=== PATIENT | male | born 1940 | race Caucasian/White ===

== ENCOUNTER → 2016-11-23 | Outpatient (CLI) | payer MEDICARE, OTHER ==
[~2016-11-23] MED LIST: [UNRECOGNIZED DRUG - OTHER]
--- NOTE | 2016-11-23 10:53 | RAD ---
Right lower extremity venous ultrasound, 11/23/2016 : History: Right leg edema Duplex evaluation including grayscale, color flow and spectral Doppler analysis was performed. The femoral and popliteal veins show no filling defects to suggest DVT. The visualized deep veins in the right calf are unremarkable. IMPRESSION: There is no sonographic evidence of deep vein thrombosis in the right lower extremity
== END | disposition home or self-care (01) ==
LOC: US 09:08
PROVIDERS: ATTEND Physician Assistant
DX: R60.0 Localized edema (principal)
CPT/HCPCS: 93971

== ENCOUNTER → 2017-08-27 | Outpatient (CLI) | payer MEDICARE, OTHER ==
--- NOTE | 2017-08-27 14:25 | RAD ---
CT head without intravenous contrast History: Single episodes, intermittent vision going black. Comparison: CT head March 22, 2004. Technique: Axial images are obtained of the head from the skull base through the vertex without IV contrast. Exposure: One or more of the following individualized dose reduction techniques were utilized for this examination: 1. Automated exposure control 2. Adjustment of the mA and/or kV according to patient size 3. Use of iterative reconstruction technique Findings: The ventricles are appropriate in size, shape, and location for the patient's age. No obvious intracranial mass, mass-effect, midline shift, hemorrhage or obvious acute infarction is identified. Basilar cisterns are patent. Bone windows demonstrate no acute calvarial abnormality. The visualized paranasal sinuses appear clear. Impression: 1. No acute intracranial process. Electronically signed by: Servando Joseph MD (08/27/2017 2:21 PM) [place] [id number]
== END | disposition home or self-care (01) ==
LOC: CT 09:14
PROVIDERS: ATTEND Nurse Practitioner Adult Health
DX: R55 Syncope and collapse (principal); I10 Essential (primary) hypertension
CPT/HCPCS: 70450

== ENCOUNTER 2018-09-01 15:03 | Emergency (ER) | payer MEDICARE, OTHER ==
[~2018-09-01] VITALS: Ht 175.3 cm; Wt 113.4 kg
[2018-09-01 15:15] VITALS: BP 135/60
--- NOTE | 2018-09-01 15:28 | PHYS DOC ---
Past History Past Medical History: High Cholesterol, Hypertension Past Surgical History: Other Smoking: Non-smoker Alcohol Use: Occasionally Drug Use: None Adult General Chief Complaint Chief Complaint: LACERATION/AVULSION HPI HPI Patient is a 78-year-old male presents with left ankle laceration/incision. This happened approximately 45 minutes prior to arrival. Patient was playing with his new knife when it slipped out of his hand striking his ankle. The knife had not been used for cutting yet. Patient reports his last tetanus vaccine was in 2002. Denies any numbness or tingling. Bleeding was controlled with direct pressure.[] Review of Systems Review of Systems Constitutional: Denies fever or chills [] Eyes: Denies change in visual acuity, redness, or eye pain [] HENT: Denies nasal congestion or sore throat [] Respiratory: Denies cough or shortness of breath [] Cardiovascular: No chest pain or palpitations[] GI: Denies abdominal pain, nausea, vomiting, bloody stools or diarrhea [] : Denies dysuria or hematuria [] Musculoskeletal: Denies back pain or joint pain [] Integument: Denies rash or skin lesions , see history of present illness[] Neurologic: Denies headache, focal weakness or sensory changes [] Endocrine: Denies polyuria or polydipsia [] All other systems were reviewed and found to be within normal limits, except as documented in this note. Current Medications Current Medications Current Medications Medications (Trade) Dose Ordered Sig/Shelby Start Time Stop Time Status Last Admin Dose Admin Diphtheria/ Tetanus/Acell Pertussis (Boostrix) 0.5 ml ONCE ONCE 09/01/18 15:30 09/01/18 15:31 UNV Allergies Allergies Allergies Coded Allergies Type Severity Reaction Last Updated Verified codeine Allergy Intermediate gi 06/07/13 Yes Physical Exam Physical Exam Constitutional: Well developed, well nourished, no acute distress, non-toxic appearance. [] HENT: Normocephalic, atraumatic, bilateral external ears normal, oropharynx moist, no oral exudates, nose normal. [] Eyes: PERRLA, EOMI, conjunctiva normal, no discharge. [] Neck: Normal range of motion, no tenderness, supple, no stridor. [] Cardiovascular:Heart rate regular rhythm, no murmur [] Lungs & Thorax: Bilateral breath sounds clear to auscultation [] Abdomen: Not examined[] Skin: Warm, dry, no erythema, no rash. [] Back: No tenderness, no CVA tenderness. [] Extremities: Left medial ankle has a 1 cm cephaladcaudad oriented laceration. There is no joint or bone exposure. There is no active bleeding. Patient is distally neurovascularly intact. The other 3 extremities show: No tenderness, no cyanosis, no clubbing, ROM intact, no edema. [] Neurologic: Alert and oriented X 3, normal motor function, normal sensory function, no focal deficits noted. [] Psychologic: Affect normal, judgement normal, mood normal. [] EKG EKG [] Radiology/Procedures Radiology/Procedures [] Course & Med Decision Making Course & Med Decision Making Pertinent Labs and Imaging studies reviewed. (See chart for details) ED course: Patient arrived, was placed in bed, and tolerated exam well. The wound was cleaned. It was explored to base. No foreign body was identified. No evidence of ligament or tendon injury. The laceration was repaired. He was d ischarged in improved condition. Medical decision making: No evidence of open fracture, ligament or tendon injury, nor neurovascular compromise. Patient's tetanus vaccine status was updated. No evidence of foreign body.[] Dragon Disclaimer Dragon Disclaimer This electronic medical record was generated, in whole or in part, using a voice recognition dictation system. Departure Departure: Impression: Primary Impression: Laceration of left ankle Disposition: 01 HOME, SELF-CARE Condition: IMPROVED Referrals: DEISY PEREZ MD (PCP) Follow-up in 2 days for a wound check Patient Instructions: Sterile Tape Wound Closure Additional Instructions: Follow-up with your regular doctor in 2 days for a wound check. Trim the edges of the Steri-Strips as they start curling up. Return to the ER if worsening p ain, purulent drainage, red streaks start moving upward from the wound, or any other concerns Laceration Repair Lac Repair Indication: Left ankle laceration[] Procedure: The patient was placed in the appropriate position and the area was then cleansed. The laceration was closed with a combination of Mastisol, Steri-S trips, and skin glue. The wound area was then dressed with sterile bandage. Total repaired wound length: 1 cm. Other Items: None] The patient tolerated the procedure well. Complications: None. Problem Qualifiers Primary Impression: Laceration of left ankle Encounter type: initial encounter Qualified Codes: S91.012A - Laceration without foreign body, left ankle, initial encounter MELANIE BARRAGAN DO Sep 01, 2018 15:28
[2018-09-01] MEDS ORDERED: DIPHTH,PERTUSS(ACELL),TET TOX 0.5 ML DISP.SYRIN. VAX IM ONE (15:45)
== END 2018-09-01 15:52 | disposition home or self-care (01) ==
LOC: ER 15:03
DX: S91.012A Laceration without foreign body, left ankle, initial encounter (principal); E78.00 Pure hypercholesterolemia, unspecified; I10 Essential (primary) hypertension; Z88.5 Allergy status to narcotic agent; W26.0XXA Contact with knife, initial encounter; Y93.89 Activity, other specified; Y92.89 Other specified places as the place of occurrence of the external cause; Y99.8 Other external cause status
CPT/HCPCS: 12001; 90471; 90715; 99283-25

== ENCOUNTER 2019-06-10 20:41 | Inpatient (IN) | payer MEDICARE, OTHER ==
[~2019-06-10] VITALS: Ht 175.3 cm; Wt 119.0 kg
[~2019-06-10 20:41] MED LIST changes: -CONTRAST GIVEN MC PRN; -IOHEXOL 240 MG/ML 50ML VIAL. PO ONE; -IOHEXOL 300 MG/ML 75 ML VIAL. IV ONE; -OXYB10TA7 PO; -[UNRECOGNIZED DRUG - OTHER]; +[UNRECOGNIZED DRUG - OTHER] PO
[2019-06-10 21:14] VITALS: BP 129/63
[2019-06-10] MEDS ORDERED: OXYB10TA7 PO (21:56)
[2019-06-10] MEDS ORDERED: MORPHINE SULFATE 2 MG/ML DISP.SYRIN. IV PRN (22:00)
[2019-06-10] MEDS: IV 1/2 NORMAL SALINE 1,000 ML IV SCH (22:19)
[2019-06-10 22:21] VITALS: BP 134/79
[2019-06-10 22:30] LABS: BASO # 0.1 x10^3/uL (0.0-0.2); BASO % 1 % (0-3); EOS # 0.3 x10^3/uL (0.0-0.7); EOS % 4 % (0-3); HEMATOCRIT 42.9 % (39.0-53.0); HEMOGLOBIN 14.2 g/dL (13.0-17.5); LYMPH # 1.1 x10^3/uL (1.0-4.8); LYMPH % 16 % (24-48); MEAN CORPUSCULAR HEMOGLOBIN 31 pg (25-35); MEAN CORPUSCULAR HGB CONC 33 g/dL (31-37); MEAN CORPUSCULAR VOLUME 93 fL (79-100); MONO # 0.6 x10^3/uL (0.0-1.1); MONO % 9 % (0-9); NEUT # 4.9 x10^3uL (1.8-7.7); NEUT % 70 % (31-73); PLATELET COUNT 202 x10^3/uL (140-400); RED BLOOD COUNT 4.64 x10^6/uL (4.30-5.70); RED CELL DISTRIBUTION WIDTH 14.2 % (11.5-14.5)
[2019-06-10 22:44] LABS: ALBUMIN 3.1 g/dL (3.4-5.0); ALBUMIN/GLOBULIN RATIO 1.1 (1.0-1.7); CALCIUM 8.4 mg/dL (8.5-10.1); CREATININE 0.9 mg/dL (0.7-1.3); GFR 81.8; POTASSIUM 3.7 mmol/L (3.5-5.1); TOTAL BILIRUBIN 0.5 mg/dL (0.2-1.0); TOTAL PROTEIN 5.9 g/dL (6.4-8.2)
--- NOTE | 2019-06-11 01:26 | NUR ---
ADMIT NOTE: PT AMBULATED IN TO ROM 105 ALERT AND ORIENTED X4 WITH ORDERS IN HAND. PT ORIENTED TO ROOM AND DISCUSSED PLAN OF CARE. NG PLACED WITHOUT DIFFICULTY , WITH LIGHT GREEN GASTRIC SECRETION NOTED PLACED ON LIS. PT C/O ABD PAIN , IV PLACED AND IV FLUIDS STARTED PRESCRIBED, BED ALARM PLACED FOR SAFETY. DR PEREZ NOTIFIED OF PT ADMISSION AND C/O ABD PAIN ORDERED RECEIVED. PT RESTING WELL THROUGHOUT HOURLY ROUNDS.
[2019-06-11 04:21] LABS: BACTERIA,URINE FEW /HPF (0-FEW); BILIRUBIN,URINE NEG (NEG); CLARITY,URINE CLEAR; COLOR,URINE YELLOW; GLUCOSE,URINE NEG (NEG); NITRITE,URINE NEG (NEG); RBC,URINE 0 /HPF (0-2); SQUAMOUS EPITHELIAL CELL,UR OCC /LPF; UROBILINOGEN,URINE 0.2 mg/dL (0.2 mg/dL)
[2019-06-11] MEDS: IV 1/2 NORMAL SALINE 1,000 ML IV SCH ×2 (04:54→14:00)
[2019-06-11 05:19] VITALS: BP 138/77
[2019-06-11] MEDS ORDERED: AA 3%/ELECTROLYTE-TPN SOLN/GLY 1,000 ML IV SCH (08:30)
[2019-06-11] MEDS ORDERED: BISACODYL 10 MG SUPP.RECT PR ONE (09:00)
[2019-06-11] MEDS: ENOXAPARIN 40 MG/0.4 ML SYRINGE. SQ SCH (09:09)
[2019-06-11] MEDS: METOCLOPRAMIDE HCL 10 MG/2 ML VIAL. IVP SCH ×4 (09:09→20:37)
[2019-06-11 10:23] VITALS: BP 140/76
--- NOTE | 2019-06-11 11:16 | HP ---
ADMIT DATE: 06/10/2019 HISTORY OF PRESENT ILLNESS: A 79-year-old gentleman, for the last 3-4 days, has been having abdominal pain. Apparently, he was seen, he says that in the Emergency Room, is not quite clear, anyway with marked bloating and distention. The patient in turn had a CT scan that was called late in the evening and the patient showed dilated small bowel, collapsed distal small bowel loops in the right lower quadrant, partial bowel obstruction. We had an NG tube placed and he did produce about 400 mL of bilious material, so that made him feel better, so he was admitted for small bowel obstruction. No previous history of surgery. PAST MEDICAL HISTORY: HEENT disorders, cataract, GI disorders, gastrointestinal symptoms, although he had a colonoscopy in 2018, normal. Abdominal pain, nausea, BPH, prostate problems, transurethral resection, urinary urgency, influenza. VACCINATION: Up-to-date. ALLERGIES: CODEINE. HOME MEDICATIONS: Oxybutynin, Cadolac. FAMILY HISTORY: Noncontributory. SOCIAL HISTORY: No smoking, alcohol or drug use. REVIEW OF SYSTEMS: The patient denies any headaches, visual changes, blurred vision, double vision. Denies any chest pain, shortness of breath. Does have significant abdominal pain, marked bloating which was improved with the NG tube, has not had a BM for a while and no problems urinating at the present time. EXTREMITIES: No clubbing, cyanosis, nor edema. NEUROLOGIC: The patient is alert and oriented x 3. Speech fluent. ____ cranial nerves. PHYSICAL EXAMINATION: GENERAL: This is a pleasant white male, in moderate amount of distress. NG tube in place, IV is in place. VITAL SIGNS: Blood pressure 130/60, respiratory rate 20, pulse 73, afebrile, moderate amount of discomfort with marked bloating and distention of his abdomen. HEENT: The patient's head was atraumatic, normocephalic. Eyes: PERRLA without jaundice. The mouth and throat were normal. NECK: Supple. LUNGS: Clear. CARDIOVASCULAR: Regular sinus rhythm. ABDOMEN: Markedly bloated and distended. The left side does show some bowel sounds, the right side is silent. EXTREMITIES: No clubbing, cyanosis nor edema. NEUROLOGIC: The patient was alert and oriented x 3 there. The patient otherwise seems to be resting fairly comfortably, making fairly good progress overall. Labs were basically not significant except for 5-10 white blood cells and hopefully they are doing a urine culture on that. Fecal Hemoccult stools are there as well as repeating blood work. IMPRESSION: Small bowel obstruction. The patient is to continue with his situation with his NG tube for now and make further evaluation. DEISY PEREZ MD DR: MERLY/denisse JOB#: [id number] / [id number]
--- NOTE | 2019-06-11 11:34 | RAD ---
ABDOMEN SUPINE UPRIGHT History: Small bowel obstruction Technique: Upright and supine views of the abdomen. Comparison: CT June 10, 2019 Findings: Interval placement enteric tube with tip looped within the proximal stomach and side port projecting over the region of the gastroesophageal junction. Imaged lung bases are unremarkable. Several mildly dilated air-filled loops of small bowel within the upper abdomen with air-fluid levels, decreased compared to prior. Contrast scattered throughout the imaged colon. Lower lumbar spondylosis. Impression: 1. Enteric tube looped within the proximal stomach with tip projecting over the gastroesophageal junction. Consider advancement. 2. Mild dilated small bowel with air-fluid levels, decreased compared to prior. 3. Contrast noted within the colon from prior CT. Electronically signed by: Abdon Esqueda DO (06/11/2019 11:31 AM) [id number]
[2019-06-11 12:26] LABS: FECAL OB PT POSITIVE (NEG)
[2019-06-11 14:58] VITALS: BP 137/80
--- NOTE | 2019-06-11 15:04 | RAD ---
KUB supine Clinical Indication: Confirm NG tube placement. Comparison: KUB, earlier same day. CT abdomen and pelvis with contrast, prior day. Findings: The lower abdomen and right lateral abdomen are excluded. Enteric tube tip is in the distal esophagus and should be advanced. There is oral contrast in the colon. No obvious opacity in the lung bases. No dilated small bowel is appreciated however much of the dilated small bowel on CT was fluid-filled. IMPRESSION: Enteric tube tip is in the distal esophagus and should be advanced. Electronically signed by: Brandon Barrett MD (06/11/2019 3:02 PM) [id number]
--- NOTE | 2019-06-11 15:11 | NUR ---
Dr. Otero notified of KUB results, order to discontinue NG tube, advance diet from NPO to Full Liquids received. Patient abdomen is slightly distended, non tender, active bowel sounds in all 4 quadrants. Denies any pain at this time. Patient received biscodyl suppository per order this am, results were an xlarge soft and formed bowel movement. Patient is resting in room with call light and fresh fluids with in reach.
[2019-06-11 19:15] VITALS: BP 147/72
[2019-06-11 22:54] VITALS: BP 133/73
[2019-06-12] MEDS ORDERED: AA 3%/ELECTROLYTE-TPN SOLN/GLY 1,000 ML IV SCH
[2019-06-12] MEDS: IV 1/2 NORMAL SALINE 1,000 ML IV SCH ×2 (01:31→06:00)
[2019-06-12 05:21] VITALS: BP 127/83
[2019-06-12 06:22] LABS: BASO # 0.1 x10^3/uL (0.0-0.2); BASO % 1 % (0-3); EOS # 0.3 x10^3/uL (0.0-0.7); EOS % 6 % (0-3); HEMATOCRIT 44.5 % (39.0-53.0); HEMOGLOBIN 14.9 g/dL (13.0-17.5); LYMPH # 0.9 x10^3/uL (1.0-4.8); LYMPH % 17 % (24-48); MEAN CORPUSCULAR HEMOGLOBIN 31 pg (25-35); MEAN CORPUSCULAR HGB CONC 34 g/dL (31-37); MEAN CORPUSCULAR VOLUME 92 fL (79-100); MONO # 0.4 x10^3/uL (0.0-1.1); MONO % 8 % (0-9); NEUT # 3.6 x10^3uL (1.8-7.7); NEUT % 67 % (31-73); PLATELET COUNT 209 x10^3/uL (140-400); RED BLOOD COUNT 4.83 x10^6/uL (4.30-5.70); RED CELL DISTRIBUTION WIDTH 13.8 % (11.5-14.5); WHITE BLOOD COUNT 5.4 x10^3/uL (4.0-11.0)
[2019-06-12 06:29] LABS: CREATININE 0.7 mg/dL (0.7-1.3); GFR 109.4; POTASSIUM 3.9 mmol/L (3.5-5.1)
[2019-06-12] MEDS: METOCLOPRAMIDE HCL 10 MG/2 ML VIAL. IVP SCH (07:54)
[2019-06-12] MEDS: ENOXAPARIN 40 MG/0.4 ML SYRINGE. SQ SCH (07:59)
[2019-06-12 10:29] VITALS: BP 155/84
--- NOTE | 2019-06-12 12:46 | NUR ---
NSG NOTE; DISCHARGE VERBAL AND WRITTEN DISCHARGE INSTRUCTIONS GIVEN TO PT WITH VERBAL UNDERSTANDING DISCHARGED TO HOME AT 1238 VIA W/C ACCOMP BY JOVAN
--- NOTE | 2019-06-13 08:28 | DS ---
DATE OF DISCHARGE: 06/12/2019 HOSPITAL COURSE: A 79-year-old male came in with severe abdominal pain, nausea, and vomiting. The patient was found on a CAT scan to have a significant possibility of a small-bowel obstruction, and as a result of this, the patient was admitted to the hospital and NG tube was placed. The patient had an evacuation of pale green material from the stomach, probably about 500 to 600 mL and the patient made good progress during the rest of his hospitalization. He began to have bowel movements as well as no nausea or vomiting. His diet was increased and he made good progress and he was discharged home. His labs were basically unremarkable except for low albumin of 3.1 and the patient had 5-10 whites, a culture on that urine showed less than 10,000, consequently unremarkable. In any case, the patient will continue to be monitored carefully to make further evaluation as an outpatient. IMPRESSION: Small-bowel obstruction, leukorrhea, stool hemoccult positive, moderate protein malnutrition. PLAN: Continue to monitor the patient as an outpatient. Advance diet slowly and continue to monitor him as indicated. DEISY PEREZ MD DR: MERLY/denisse JOB#: [id number] / [id number]
== END 2019-06-12 12:38 | disposition home or self-care (01) | DRG 389 ==
LOC: 1 SOUTH 20:52
PROVIDERS: ADMIT Family Medicine; ATTEND Family Medicine
DX: K56.609 Unspecified intestinal obstruction, unspecified as to partial versus complete obstruction (principal); E44.0 Moderate protein-calorie malnutrition; Z68.38 Body mass index [BMI] 38.0-38.9, adult; N40.0 Benign prostatic hyperplasia without lower urinary tract symptoms; H26.9 Unspecified cataract
CPT/HCPCS: 36415; 74018; 74019; 80048; 80053; 81001; 82274; 85025; 87086; J1650; J2060; J2270; J2765; J3490; J7030

== ENCOUNTER → 2019-06-10 | Outpatient (CLI) | payer MEDICARE, OTHER ==
[~2019-06-10] MED LIST changes: +CONTRAST GIVEN MC PRN; +IOHEXOL 240 MG/ML 50ML VIAL. PO ONE; +IOHEXOL 300 MG/ML 75 ML VIAL. IV ONE; +OXYB10TA7 PO
[2019-06-10 18:47] LABS: CREATININE 0.9 mg/dL (0.7-1.3); GFR 81.8
--- NOTE | 2019-06-10 20:00 | RAD ---
Study: CT abdomen/pelvis with intravenous contrast Indication: Abdominal pain. Nausea and constipation. Comparison: 07/20/2013 Technique: Helical CT imaging performed of the abdomen and pelvis after the intravenous administration of 74 cc Omnipaque 300 contrast. Sagittal and coronal reformats were obtained. One or more of the following individualized dose reduction techniques were utilized for this examination: 1. Automated exposure control 2. Adjustment of the mA and/or kV according to patient size 3. Use of iterative reconstruction technique. Findings: Chest: Motion degraded evaluation of the lower chest. Mild haziness at the left lung base favored secondary to volume loss. Liver: Unchanged. Gallbladder/Biliary Tree: Mild pericholecystic edema without overt wall thickening. No calcified gallstones identified. Nondilated biliary tree. Pancreas: No peripancreatic inflammation. Duodenal diverticulum seen at the pancreatic head. Spleen: Within normal limits. Adrenal Glands: Unremarkable. Kidneys/Ureters/Bladder: Peripelvic cysts bilaterally. Interval enlargement of a low-attenuation focus at the lower pole the right kidney, image 45 series 2, a portion of which measures fat density. This low-attenuation focus measures approximately 8 mm on image 52 series 2 with low-attenuation tracking towards the more central kidney. No hydroureter. Unremarkable bladder. Reproductive Organs: Slightly smaller in size from the prior. Colon: Mild/moderate constipation. Appendix: Normal. Small Bowel: The majority of the small bowel is distended/mildly dilated with some loops of small bowel at the right lower quadrant more collapsed in configuration. No pneumatosis. In addition to the duodenal diverticulum at the pancreatic head there is a prominent diverticulum extending superiorly off the transverse portion of the duodenum, image 37 series 2. Stomach: Not significantly distended. No focal abnormality. Vasculature: Scattered calcific plaque. Nonaneurysmal aorta. Lymph Nodes: No suspicious by size criteria. Peritoneum and Body Wall: No significant volume free fluid. No free air. Appears to be mild mesenteric edema interposed between prominent bowel loops left lower quadrant, image 52 series 2. Mild edema-like attenuation at the left lower quadrant, image 67 series 2. Fat-containing inguinal hernias bilaterally. Bones: Findings of diffuse idiopathic skeletal hyperostosis with bridging osteophyte formation across the anterior portion of the sacroiliac joints. Multifocal degenerative changes. Chronic L1 compression fracture. Miscellaneous: None. Impression: 1. The majority of the small bowel is distended/mildly dilated with partially collapsed distal small bowel loops in the right lower quadrant. An ileus or partial obstruction are considerations. No pneumatosis or perforation. 2. Mild pericholecystic edema but no calcified gallstones are identified or overt wall thickening by CT. Consider targeted sonographic evaluation of the right upper quadrant is there is pain referable to this region. 3. Mild/moderate constipation. 4. Chronic findings as discussed above. Electronically signed by: SUSIE SCHOFIELD MD (06/10/2019 7:57 PM) [id number]
== END | disposition home or self-care (01) ==
LOC: CT 17:47
PROVIDERS: ATTEND Family Medicine
DX: K40.20 Bilateral inguinal hernia, without obstruction or gangrene, not specified as recurrent (principal); K57.30 Diverticulosis of large intestine without perforation or abscess without bleeding; K57.10 Diverticulosis of small intestine without perforation or abscess without bleeding; N28.1 Cyst of kidney, acquired; N28.81 Hypertrophy of kidney; K59.00 Constipation, unspecified; I70.0 Atherosclerosis of aorta; M84.48XA Pathological fracture, other site, initial encounter for fracture; M48.10 Ankylosing hyperostosis [Forestier], site unspecified; M25.78 Osteophyte, vertebrae; M47.816 Spondylosis without myelopathy or radiculopathy, lumbar region
CPT/HCPCS: 36415; 74177; 82565; 84520; Q9966; Q9967

== ENCOUNTER → 2019-06-13 | Outpatient (CLI) | payer MEDICARE, OTHER ==
[2019-06-12 10:29] VITALS: BP 155/84
[~2019-06-13] MED LIST changes: +OXYB10TA7 PO
[2019-06-13 17:26] LABS: BASO # 0.1 x10^3/uL (0.0-0.2); BASO % 1 % (0-3); EOS # 0.3 x10^3/uL (0.0-0.7); EOS % 4 % (0-3); HEMATOCRIT 45.6 % (39.0-53.0); LYMPH # 1.4 x10^3/uL (1.0-4.8); LYMPH % 17 % (24-48); MEAN CORPUSCULAR HEMOGLOBIN 31 pg (25-35); MEAN CORPUSCULAR HGB CONC 33 g/dL (31-37); MEAN CORPUSCULAR VOLUME 93 fL (79-100); MONO # 0.6 x10^3/uL (0.0-1.1); MONO % 8 % (0-9); NEUT # 5.5 x10^3uL (1.8-7.7); NEUT % 70 % (31-73); PLATELET COUNT 215 x10^3/uL (140-400); RED CELL DISTRIBUTION WIDTH 13.8 % (11.5-14.5); WHITE BLOOD COUNT 7.9 x10^3/uL (4.0-11.0)
[2019-06-13 17:42] LABS: CALCIUM 8.7 mg/dL (8.5-10.1); CREATININE 1.1 mg/dL (0.7-1.3); GFR 64.9; POTASSIUM 3.8 mmol/L (3.5-5.1)
== END | disposition home or self-care (01) ==
LOC: LAB 16:53
PROVIDERS: ATTEND Family Medicine
DX: R42 Dizziness and giddiness (principal)
CPT/HCPCS: 36415; 80048; 82550; 84484; 85025

== ENCOUNTER 2019-06-17 09:56 | Inpatient (IN) | payer MEDICARE, OTHER ==
[~2019-06-17] VITALS: Ht 175.3 cm; Wt 117.0 kg
[2019-06-17] MEDS ORDERED: ONDANSETRON ODT 4 MG TAB.RAPDIS PO PRN (11:00)
[2019-06-17 11:09] LABS: BASO # 0.1 x10^3/uL (0.0-0.2); BASO % 1 % (0-3); EOS # 0.3 x10^3/uL (0.0-0.7); EOS % 4 % (0-3); HEMATOCRIT 43.8 % (39.0-53.0); HEMOGLOBIN 14.7 g/dL (13.0-17.5); LYMPH % 13 % (24-48); MEAN CORPUSCULAR HEMOGLOBIN 31 pg (25-35); MEAN CORPUSCULAR HGB CONC 34 g/dL (31-37); MEAN CORPUSCULAR VOLUME 91 fL (79-100); MONO # 0.6 x10^3/uL (0.0-1.1); MONO % 8 % (0-9); NEUT # 5.9 x10^3uL (1.8-7.7); NEUT % 74 % (31-73); PLATELET COUNT 210 x10^3/uL (140-400); RED CELL DISTRIBUTION WIDTH 13.8 % (11.5-14.5)
[2019-06-17 11:18] LABS: ALBUMIN 3.2 g/dL (3.4-5.0); ALBUMIN/GLOBULIN RATIO 1.1 (1.0-1.7); CALCIUM 8.3 mg/dL (8.5-10.1); CREATININE 0.9 mg/dL (0.7-1.3); GFR 81.8; POTASSIUM 3.9 mmol/L (3.5-5.1); TOTAL BILIRUBIN 0.5 mg/dL (0.2-1.0)
[2019-06-17] MEDS: IV 1/2 NORMAL SALINE 1,000 ML IV SCH (11:37)
[2019-06-17 11:38] VITALS: BP 117/71
[2019-06-17 13:58] LABS: BILIRUBIN,URINE NEG (NEG); CLARITY,URINE CLEAR; COLOR,URINE YELLOW; GLUCOSE,URINE NEG (NEG)
[2019-06-17 14:00] LABS: BACTERIA,URINE 0 /HPF (0-FEW); NITRITE,URINE NEG (NEG); UROBILINOGEN,URINE 0.2 mg/dL (0.2 mg/dL)
[2019-06-17 14:01] LABS: SQUAMOUS EPITHELIAL CELL,UR FEW /LPF
[2019-06-17 15:39] VITALS: BP 129/76
--- NOTE | 2019-06-17 15:51 | RAD ---
Exam: Abdomen one view INDICATION: Abdominal pain, rule out obstruction TECHNIQUE: Frontal view of the abdomen Comparisons: None FINDINGS: Air and stool are noted throughout the colon to level the rectum in a nonobstructive bowel gas pattern. No suspicious masses or calcifications. Visualized osseous structures are unremarkable. IMPRESSION: Nonobstructive bowel gas pattern Electronically signed by: Alexander Adames MD (06/17/2019 3:47 PM) [id number]
[2019-06-17] MEDS ORDERED: MAGNESIUM CITRATE 296 ML SOLUTION. PO ONE (17:15)
[2019-06-17] MEDS ORDERED: BISACODYL 10 MG SUPP.RECT PR ONE (17:15)
[2019-06-17 19:20] VITALS: BP 112/62
[2019-06-17 22:55] VITALS: BP 113/63
[2019-06-18] MEDS: IV 1/2 NORMAL SALINE 1,000 ML IV SCH (00:20)
[2019-06-18] MEDS ORDERED: ACETAMINOPHEN 325 MG TABLET PO PRN (05:30)
--- NOTE | 2019-06-24 11:55 | DS ---
DATE OF DISCHARGE: 06/18/2019 HOSPITAL COURSE: A 79-year-old male came in with severe abdominal pain, nausea and vomiting. The patient was admitted for observation for further evaluation since he recently had a small-bowel obstruction. The patient was unable to keep any fluids down and complained of severe epigastric pain. The patient did have 5-10 white blood cells in his urine. Culture itself was not finalized. The patient was given IV fluids, rested his bowel, gave him some laxatives and seemed to help him quite a bit. KUB demonstrated a nonobstructive bowel gas pattern. In any case, the patient made good progress during the rest of his hospitalization and he was discharged home. IMPRESSION: Therefore, an epigastric pain, nausea, obstipation. PLAN: The patient will be discharged. Soft diet, decreased activity, see MRAD. Follow up as an outpatient in 7-10 or sooner as needed. DEISY PEREZ MD DR: MERLY/denisse JOB#: [id number] / [id number]
== END 2019-06-18 09:18 | disposition home or self-care (01) | DRG 389 ==
LOC: 1 SOUTH 09:56
PROVIDERS: ADMIT Family Medicine; ATTEND Family Medicine
DX: K56.609 Unspecified intestinal obstruction, unspecified as to partial versus complete obstruction (principal); E44.0 Moderate protein-calorie malnutrition; E78.5 Hyperlipidemia, unspecified; N40.0 Benign prostatic hyperplasia without lower urinary tract symptoms; K59.09 Other constipation; I10 Essential (primary) hypertension; G62.9 Polyneuropathy, unspecified; Z87.442 Personal history of urinary calculi; Z88.8 Allergy status to other drugs, medicaments and biological substances; Z68.38 Body mass index [BMI] 38.0-38.9, adult
CPT/HCPCS: 36415; 74018; 80053; 81001; 82150; 83690; 85025; J7030

== ENCOUNTER → 2020-08-11 | Outpatient (CLI) | payer MEDICARE, OTHER ==
--- NOTE | 2020-08-11 13:14 | RAD ---
CT HEAD/BRAIN WO History: Dizzy and headache. Comparison: 08/27/2017 Technique: Noncontrast CT imaging was performed of the head. Findings: No intracranial hemorrhage. No mass effect. No hydrocephalus. No evidence of territorial infarction. Relative hypodensity in the left temporal lobe appears similar to comparison CT and is most likely a rtifactual. Imaged orbits are unremarkable. Minimal left mastoid effusion. Small left maxillary mucous retention cyst or polyp, partially visualized. No acute calvarial fracture. Impression: 1. No acute intracranial abnormality. 2. Minimal left mastoid effusion. ----- Exposure: One or more of the following individualized dose reduction techniques were utilized for thi s examination: 1. Automated exposure control 2. Adjustment of the mA and/or kV according to patient size 3. Use of iterative reconstruction technique. Electronically signed by: Hans Red MD (08/11/2020 1:11 PM) [facility]
== END ==
LOC: CT 11:07
PROVIDERS: ATTEND Family Medicine
DX: R51.9 Headache, unspecified (principal); R42 Dizziness and giddiness
CPT/HCPCS: 70450

== ENCOUNTER 2020-09-28 12:00 | Emergency (ER) | payer MEDICARE, OTHER ==
[~2020-09-28] VITALS: Ht 177.8 cm; Wt 115.9 kg
[2020-09-28 12:10] VITALS: BP 132/61
[2020-09-28] MEDS ORDERED: cefTRIAXone IM 1 GM VIAL IM ONE (12:30)
[2020-09-28] MEDS ORDERED: BACITRACIN ZINC TOPICAL OINT PACKET. TP ONE (12:30)
[2020-09-28] MEDS ORDERED: DIPH,PERTUSS(ACELL),TET VAC/PF 0.5 ML SYRINGE. VAX IM ONE (12:30)
[2020-09-28] MEDS ORDERED: CEPH500C PO (12:43)
--- NOTE | 2020-09-28 12:43 | PHYS DOC ---
Past History Past Medical History: High Cholesterol, Hypertension, Other Additional Past Medical Histor: BLADDER ISSUES (LUIS GARCIA APRN) Past Surgical History: TURP, Other Additional Past Surgical Histo: RIGHT ANKLE (LUIS GARCIA APRN) Smoking: Non-smoker Alcohol Use: Occasionally Drug Use: None (LUIS GARCIA APRN) Adult General Chief Complaint Chief Complaint: LOWER BACK PAIN OR INJURY HPI HPI Patient is a 80-year-old male who presents to the emergency department with a chief complaint of an infection to the right lower leg. Patient states 1 week ago he was working outside when he scraped his right lower leg against a piece of rebar causing a laceration. Patient states that he did not seek any medical attention or advice, states that he has been cleaning it with water only without soap, and applying antibiotic ointment with Band-Aids. Patient states that he noticed that the lower leg has become reddened around the skin wound site. Patient denies any purulent drainage from the skin wound. Patient denies any numbness or tingling to his right leg, denies any increased swelling of the right leg. Patient denies any other physical complaints or physical concerns. Patient reports his last tetanus immunization was approximately 10 years ago. Patient denies allergies to medications, states he has a past medical history of hypertension and hypercholesterol, states she sees Dr. Perez. (LUIS GARCIA APRN) Review of Systems Review of Systems 14 body systems of review of systems have been reviewed. See HPI for pertinent positives and negative responses, otherwise all other systems are negative, nonpertinent or noncontributory. (LUIS GARCIA APRN) Current Medications Current Medications Current Medications Medications (Trade) Dose Ordered Sig/Shelby Start Time Stop Time Status Last Admin Dose Admin Bacitracin (Bacitracin Topical Pkt) 1 pkt 1X ONCE 09/28/20 12:30 09/28/20 12:31 UNV Ceftriaxone Sodium (Rocephin Im) 1 gm 1X ONCE 09/28/20 12:30 09/28/20 12:31 UNV Diphtheria/ Pertussis/Tetanus Vacc (ADACEL TDap SYRINGE) 0.5 ml ONCE ONCE 09/28/20 12:30 09/28/20 12:31 UNV (LUIS GARCIA APRN) Allergies Allergies Allergies Coded Allergies Type Severity Reaction Last Updated Verified codeine Allergy Intermediate gi 06/07/13 Yes (LUIS GARCIA APRN) Physical Exam Physical Exam Constitutional: Well developed, well nourished, no acute distress, non-toxic appearance. 80-year-old male in no apparent distress. HENT: Normocephalic, atraumatic, bilateral external ears normal, oropharynx moist, no oral exudates, nose normal. Eyes: PERRLA, EOMI, conjunctiva normal, no discharge. Neck: Normal range of motion, no tenderness, supple, no stridor. Cardiovascular:Heart rate regular rhythm, no murmur Lungs & Thorax: Bilateral breath sounds clear to auscultation Abdomen: Bowel sounds normal, soft, no tenderness, no masses, no pulsatile masses. Skin: Warm, dry, no erythema, no rash. See extremity note for focused skin assessment Back: No tenderness, no CVA tenderness. Extremities: No tenderness, no cyanosis, no clubbing, ROM intact, no edema. Except for right lower extremity lower third of anterior cortez has unrepaired V- shaped laceration total length 3 cm healing well without drainage. There is a 4 cm x 6 cm oval-shaped area of erythema that is not raised, no distinct borders with blanching, warm to touch, 1+ edema with tenderness on palpation, involved tissues feel hard upon palpation, patient does complain of pain with palpation however states it is only mild rating it a 1 to a 2, no purulent drainage appreciated, erythema is not circumferential, no lymphangitis red lines apprecia george extending proximately nor distally, inguinal lymph nodes are not inflamed nor painful nor swollen to palpation. Neurologic: Alert and oriented X 3, normal motor function, normal sensory function, no focal deficits noted. Psychologic: Affect normal, judgement normal, mood normal. (LUIS GARCIA APRN) Current Patient Data Vital Signs Vital Signs Date Time Temp Pulse Resp B/P (MAP) Pulse Ox O2 Delivery O2 Flow Rate FiO2 09/28/20 12:10 98.1 73 20 132/61 (84) 96 Room Air (LUIS GARCIA APRN) EKG EKG [] (LUIS GARCIA APRN) Radiology/Procedures Radiology/Procedures [] (LUIS GARCIA APRN) Heart Score C/O Chest Pain: No Risk Factors: Risk Factors: DM, Current or recent (<one month) smoker, HTN, HLP, family history of CAD, obesity. Risk Scores: Risk Factors: DM, Current or recent (<one month) smoker, HTN, HLP, family history of CAD, obesity. (LUIS GARCIA APRN) Course & Med Decision Making Course & Med Decision Making Pertinent Labs and Imaging studies reviewed. (See chart for details) 80-year-old male, vital signs reviewed, presents emergency department chief complaint of redness around a skin wound he suffered while accidentally kicking his leg against a piece of metal rebar approximately week ago. Physical examination reveals a V-shaped unrepaired laceration that is not draining, a ppears to be healing well, does have an erythematous area consistent with cellulitis, lab tests not indicated related to normal vital signs and physical examination absence of system toxicity, there is no oral or ophthalmic foci, the patient does not have a history of diabetes or malignancy or immunodeficiency, the patient has not had a splenectomy, this was not from a animal bite wound, there has been no reported recurrent cellulitis history, there is no lymphangitis appreciated, no indication for blood cultures, punch biopsy, or needle aspiration. Discussed with patient diagnosis of cellulitis, will bring tetanus immunization up-to-date, will give 1 g IM Rocephin, cleanse and dress wound with bacitracin and Band-Aid, will send home with prescription of Keflex to take 4 times a day for 7 days. Discussed with patient daily cleansing with soap and water and antibiotic ointment application with Band-Aid or other bandage, discussed with patient signs and symptoms of infectious process that would warrant a return to the emergency department immediately. Discussed with patient follow-up with PCP this week for reevaluation of cellulitis infection. States on pharmacist called and reported patient had DTaP immunization in 2019. Discussed this with patient, will DC order for Adacel DTaP on today's visit as patient's tetanus immunization is up-to-date and is not indicated for today's visit. This is unlikely a Erysipelas, Erythema multiforme, Gas gangrene, Osteomyelitis, Septic arthritis, Lymphadenitis, Lymphangitis, Necrotizing fasciitis, Crum- Geoff Syndrome, Nocardiosis Herpetic, Dawood Erythema migrans (Lyme disease), Burn, wound infection, Non-infectious Drug reaction, Allergic reaction, Insect bite, Cutaneous T-cell lymphoma, DVT, Ruptured Nixon's cyst, or acute gout. Patient gave verbal understanding of discharge home instructions, wound care, prescribed antibiotic use, follow-up with PCP this week, strict return to emergency department precautions or concerns, patient was thankful and states she is ready to go home, patient was discharged home without incident. (LUIS GARCIA APRN) Dragon Disclaimer Dragon Disclaimer This electronic medical record was generated, in whole or in part, using a voice recognition dictation system. (LUIS GARCIA APRN) Departure Departure: Impression: Primary Impression: Cellulitis of right anterior lower leg Disposition: HOME / SELF CARE / HOMELESS Condition: GOOD Referrals: DEISY PEREZ MD (PCP) Patient Instructions: Cellulitis Additional Instructions: You were seen today in the emergency department for an infection of your right lower leg after an initial injury you reported a week ago. The red and inflamed skin around the area appears to be a cellulitis which is an infection of the skin cells. You were treated today in the emergency department with an antibiotic intramuscular injection called Rocephin 1 g. You are prescribed an oral medication called Keflex/cephalexin which she will take 4 times a day for 7 days. Your initial wound is healing well, there is no drainage, continue to cleanse with soap and water daily and apply topical antibiotic ointment and cover with Band-Aid. Please follow-up with your primary care doctor for a wound evaluation soon if not getting considerably better over the next 2 to 3 days. Please return to the emergency department for worsening symptoms or other concerns. You had indicated that your last tetanus immunization was approximately 10 years ago, however our pharmacy records indicate that you received a tetanus immunization in 2019. Therefore a tetanus immunization update was not required today during your emergency room visit. Please consider updating your tetanus immunization during the year of 2023. EMERGENCY DEPARTMENT GENERAL DISCHARGE INSTRUCTIONS Thank you for coming to [facility] (ED) today and trusting us with you care. We trust that you had a positivie experience in our Emergency Department. If you wish to speak to the department management, you may call the director at [phone]. YOUR FOLLOW UP INSTRUCTIONS ARE FOLLOWS: 1. Do you have a private Doctor? If you do not have a private doctor, please ask for a resource list of physicians or clinics that may be able to assist you with follow up care. 2. The Emergency Physician has interpreted your x-rays. The X-Ray specialist will also review them. If there is a change in the findings, you will be notified in 48 hours when at all possible. 3. A lab test or culture has been done, your results will be reviewed and you will be notified if you need a change in treatment. ADDITIONAL INSTRUCTIONS AND INFORMATION: 1. Your care today has been supervised by a physician who is specially trained in emergency care. Many problems require more than one evaluation for a complete diagnosis and treatment. We recommend that you schedule your follow up appointment as recommended to ensure complete treatment of you illness or injury. If you are unable to obtain follow up care and continue to have a problem, or if your condition worsens, we recommend that you return to the ED. 2. We are not able to safely determine your condition over the phone nor are we able to give sound medical advice over the phone. For these safety reasons, if you call for medical advice we will ask you to come to the ED for further evaluation. 3. If you have any questions regarding these discharge instructions please call the ED at [phone]. SAFETY INFORMATION: In the interest of safety, wellness, and injury prevention; we encourage you to wear your sealbelt, if you smoke; quite smoking, and we encourage family to use a protective helmet for bicycling and other sporting events that present an increased risk for head injury. IF YOUR SYMPTOMS WORSEN OR NEW SYMPTOMS DEVELOP, OR YOU HAVE CONCERNS ABOUT YOUR CONDITION; OR IF YOUR CONDITION WORSENS WHILE YOU ARE WAITING FOR YOUR FOLLOW UP APPOINTMENT; EITHER CONTACT YOUR PRIMARY CARE DOCTOR, THE PHYSICIAN WHOSE NAME AND NUMBER YOU WERE GIVEN, OR RETURN TO THE ED IMMEDIATELY. Scripts Cephalexin (CEPHALEXIN) 500 Mg Capsule 1 CAP PO QID for skin infection for 7 Days, #28 CAP 0 Refills Prov: LUIS GARCIA APRN 09/28/20 Attending Signature Attending Signature I have reviewed the PA/SHEET TESTER's note and plan of care. I was available for consultation as needed during the patient's visit in the emergency department. I agree with the clinical impression, plan, and disposition. (LUIS THURMAN DO) LUIS GARCIA APRN Sep 28, 2020 12:43 LUIS THURMAN DO Sep 28, 2020 18:25
== END 2020-09-28 12:58 | disposition home or self-care (01) ==
LOC: ER 12:00
DX: S81.811A Laceration without foreign body, right lower leg, initial encounter (principal); L03.115 Cellulitis of right lower limb; E78.00 Pure hypercholesterolemia, unspecified; I10 Essential (primary) hypertension; Z88.5 Allergy status to narcotic agent; W26.8XXA Contact with other sharp object(s), not elsewhere classified, initial encounter; Y93.89 Activity, other specified; Y92.89 Other specified places as the place of occurrence of the external cause; Y99.8 Other external cause status
CPT/HCPCS: 96372; 99283; J0696

== ENCOUNTER → 2021-02-10 | Outpatient (CLI) | payer MEDICARE, OTHER ==
[~2021-02-10] MED LIST changes: +CEPH500C PO
--- NOTE | 2021-02-10 09:54 | RAD ---
EXAM: CT lumbar spine without IV contrast CLINICAL HISTORY: MUSCLE SPASM, FALL SATURDAY, LOW BACK PAIN COMPARISON: 06/10/2019 TECHNIQUE: Helical CT was performed through the lumbar spine. Axial, coronal and sagittal reformatted images were generated. PQRS compliance statement - One or more of the following individualized dose reduction techniques wer e utilized for this study: 1. Automated exposure control 2. Adjustment of the mA and/or kV according to patient size 3. Use of iterative reconstruction technique FINDINGS: There is 50 percent height loss of the L1 vertebral body, stable. There is posterior retropulsion of the posterior elements of L1 which is also grossly stable. Otherwise vertebral body heights are prese rved. There is moderate disc height loss L1-2 level and severe L5-S1 disc height loss. Mild to moderate dis c height loss at L2-3, L3-4 and L4-5. No spondylolisthesis. Multilevel facet degenerative changes. Degenerative changes between the posteri or spinous processes may be seen with Baastrup's disease. Decreased bone mineral density. There is mo derate central canal stenosis at L2-3, L3-4 and L4-5 with multilevel disc disease. Duodenal diverticula are seen. Bilateral parapelvic cysts are seen. IMPRESSION: 1. There is approximately 50 percent height loss of L1, stable. Otherwise no acute lumbar spine frac ture is seen. 2. Multilevel degenerative changes of the spine most prominent at L5-S1 Electronically signed by: Diogenes Nguyen MD (02/10/2021 9:51 AM) [id number]
== END ==
LOC: CT 09:14
PROVIDERS: ATTEND Family Medicine
DX: M47.817 Spondylosis without myelopathy or radiculopathy, lumbosacral region (principal); K57.10 Diverticulosis of small intestine without perforation or abscess without bleeding; N28.1 Cyst of kidney, acquired; W01.0XXA Fall on same level from slipping, tripping and stumbling without subsequent striking against object, initial encounter; M62.838 Other muscle spasm
CPT/HCPCS: 72131

== ENCOUNTER → 2021-03-21 | Outpatient (CLI) | payer MEDICARE, OTHER ==
--- NOTE | 2021-03-21 18:44 | RAD ---
STUDY: CT of the right lower extremity without contrast INDICATION: Right foot and ankle pain. Fall. COMPARISON: None recently. TECHNIQUE: Axial CT imaging of the right lower extremity performed without contrast. Coronal and sagi ttal reformats were obtained. The [id number] includes the mid to distal lower leg through the toes . One or more of the following individualized dose reduction techniques were utilized for this examinat ion: 1. Automated exposure control 2. Adjustment of the mA and/or kV according to patient size 3. Use of iterative reconstruction technique. FINDINGS: Acute avulsion fracture without significant displacement at the lateral margin of the distal calcaneu s adjacent to the calcaneocuboid joint, image 68 series 3. No additional fracture is identified. No m alalignment across the TMT joints or at the Lisfranc interval. Advanced multifocal degenerative villegas es ranging from mild to severe and collectively greatest at several tarsometatarsal joints and the na viculocuneiform joint. Degenerative changes at the ankle and a ghost track traversing the medial mall eolus. Multifocal subcutaneous edema. No soft tissue gas. IMPRESSION: 1. Nondisplaced avulsion fracture with acute features seen at the lateral margin of the distal calca neus adjacent to the calcaneocuboid joint. No additional fracture is identified. No traumatic malalig nment considering the absence of weightbearing. 2. Advanced multifocal arthrosis ranging from mild to severe such as at tarsometatarsal joints and t he naviculocuneiform joint. Electronically signed by: SUSIE SCHOFIELD MD (03/21/2021 6:42 PM) [id number]
== END ==
LOC: CT 17:35
PROVIDERS: ATTEND Family Medicine
DX: S92.001A Unspecified fracture of right calcaneus, initial encounter for closed fracture (principal); R60.0 Localized edema; M19.071 Primary osteoarthritis, right ankle and foot; W19.XXXA Unspecified fall, initial encounter; Y93.89 Activity, other specified; Y92.89 Other specified places as the place of occurrence of the external cause; Y99.8 Other external cause status
CPT/HCPCS: 73700

== ENCOUNTER → 2021-03-28 | Outpatient (CLI) | payer MEDICARE, OTHER ==
--- NOTE | 2021-03-28 16:03 | RAD ---
EXAM: Right foot, 3 views. HISTORY: Fracture follow-up. COMPARISON: CT dated 03/21/2021 FINDINGS: 3 views of the right foot are obtained. There is a minimally displaced fracture of the ante rolateral calcaneus, better characterized on the recent CT. There is moderate degenerative subchondra l sclerosis and spurring involving the midfoot. There is a benign osseous gas along the anterior talu s. There is mild first metatarsal phalangeal joint spurring. There is mild tibiotalar joint spurring. There is a small plantar spur. There is enthesopathy at the Achilles tendon insertion. IMPRESSION: 1. Minimally displaced anterolateral calcaneal fracture, unchanged compared to the recent CT when all owing for differences in imaging modality. 2. 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 Electronically signed by: Akosua Sherwood MD (03/28/2021 4:01 PM) [id number]
== END ==
LOC: RAD 10:03
PROVIDERS: ATTEND Orthopaedic Surgery
DX: S92.211A Displaced fracture of cuboid bone of right foot, initial encounter for closed fracture (principal); S92.001A Unspecified fracture of right calcaneus, initial encounter for closed fracture; M19.071 Primary osteoarthritis, right ankle and foot; M77.31 Calcaneal spur, right foot; X58.XXXA Exposure to other specified factors, initial encounter; Y93.89 Activity, other specified; Y92.89 Other specified places as the place of occurrence of the external cause; Y99.8 Other external cause status
CPT/HCPCS: 73630